=== PATIENT | male | born 1955 | race African-American/Black ===

== ENCOUNTER 2018-01-19 14:11 | Inpatient (IN) | payer OTHER ==
[~2018-01-19] VITALS: Ht 200.7 cm; Wt 72.3 kg
[2018-01-19] MEDS ORDERED: AMLO5TAB2 PO (14:49)
[2018-01-19] MEDS ORDERED: FERR325T28 PO (14:49)
[2018-01-19] MEDS ORDERED: ASCO500T9 PO (14:49)
[2018-01-19] MEDS ORDERED: POLY17PO4 PO (14:49)
[2018-01-19] MEDS ORDERED: ATOR40TA PO (14:49)
[2018-01-19] MEDS ORDERED: WARF4TAB41 PO (14:49)
[2018-01-19] MEDS ORDERED: CAPT100T2 PO (14:49)
[2018-01-19] MEDS ORDERED: AMIK250V14 IV (14:49)
[2018-01-19] MEDS ORDERED: HYDR-4076 PO (14:49)
[2018-01-19] MEDS ORDERED: INSU100V7 SQ (14:49)
[2018-01-19] MEDS ORDERED: MULT-447 PO (14:49)
[2018-01-19] MEDS ORDERED: BLOO-668 IN (14:49)
[2018-01-19] MEDS ORDERED: HYDR-552 PO (14:49)
[2018-01-19] MEDS ORDERED: DOCU-141 PO (14:49)
[2018-01-19] MEDS ORDERED: INSU100V27 SQ (14:49)
[2018-01-19] MEDS ORDERED: LEVE250T2 PO (14:49)
[2018-01-19] MEDS ORDERED: CLON0.5T PO (14:49)
[2018-01-19] MEDS ORDERED: FURO-144 PO (14:49)
[2018-01-19] MEDS ORDERED: FAMO20TA8 PO (14:49)
[2018-01-19 15:29] LABS: BASOPHILS % (AUTO) 0.4 % (0.0-2.0); HEMATOCRIT 28 % (39-51); HEMOGLOBIN 8.6 g/dL (13.5-17.5); LYMPHOCYTES # (AUTO) 0.8 /CMM (0.8-4.8); LYMPHOCYTES % (AUTO) 15.6 % (20.0-44.0); MEAN CORPUSCULAR HEMOGLOBIN 23 PG (26.0-33.0); MEAN CORPUSCULAR HGB CONC 31 g/dl (31.0-36.0); MEAN CORPUSCULAR VOLUME 72 fL (80-96); MONOCYTES # (AUTO) 0.4 /CMM (0.1-1.30); MONOCYTES % (AUTO) 7.2 % (2.0-12.0); NEUTROPHILS # (AUTO) 3.7 /CMM (1.8-8.9); NEUTROPHILS % (AUTO) 75.8 % (43.0-81.0); PLATELET COUNT (AUTO) 569 /CMM (150-450); RDW COEFFICIENT OF VARIATION 18.9 (11.5-15.0); RED BLOOD CELL COUNT(AUTO) 3.83 MIL/uL (4.5-6.0); WHITE BLOOD COUNT (AUTO) 4.9 K/uL (4.3-11.0)
[2018-01-19 15:34] LABS: INR 1.62 (0.85-1.15)
[2018-01-19 15:37] LABS: ALBUMIN 2.1 g/dL (3.4-5.0); BILIRUBIN,DIRECT 0.1 mg/dL (0.0-0.2); BILIRUBIN,TOTAL 0.2 mg/dL (0.2-1.0); CALCIUM, SERUM 8.9 mg/dL (8.5-10.1); CREATININE 0.7 mg/dL (0.6-1.3); TOTAL PROTEIN, SERUM 6.8 g/dL (6.4-8.2)
[2018-01-19 15:54] LABS: POTASSIUM 2.7 mmol/L (3.5-5.1)
[2018-01-19] MEDS ORDERED: CT SWABBABLE VALVE TRANS SET 1 EA INFUS.SET MC ONE (16:11)
[2018-01-19] MEDS ORDERED: IV NS 0.9% 250 ML IV ONE (16:11)
[2018-01-19] MEDS ORDERED: IOHEXOL-300 100 ML VIAL IV ONE (16:11)
[2018-01-19] MEDS ORDERED: POTASSIUM CL. PREMIX PERIPHER. 50 ML IV ONE (16:13)
[2018-01-19] MEDS ORDERED: Magnesium 1GM/D5W 100ML PREMIX 100 ML IV ONE ×2 (16:20→16:21)
[2018-01-19] MEDS ORDERED: POTASSIUM CL. PREMIX PERIPHER. 50 ML ONE (16:20)
[2018-01-19] MEDS ORDERED: Magnesium 1GM/D5W 100ML PREMIX PIGGYBACK IV ONE (16:30)
--- NOTE | 2018-01-19 17:55 | NUR ---
pt assigned tele 327
[2018-01-19] MEDS ORDERED: VANCOMYCIN 1 GM in IV D5W 250 ML IV ONE (18:30)
[2018-01-19] MEDS ORDERED: Z GUARD REMEDY 2 OZ OINT TP PRN (18:30)
[2018-01-19] MEDS ORDERED: HYDROCODONE/APAP 5/325MG 1 EACH TABLET PO PRN ×2 (18:30)
[2018-01-19] MEDS ORDERED: MAGNESIUM HYDROXIDE 30 ML UDC PO PRN (18:30)
[2018-01-19] MEDS ORDERED: ACETAMINOPHEN 325 MG TABLET PO PRN (18:30)
[2018-01-19] MEDS ORDERED: MAG HYDROX/AL HYDROX/SIMETH 30 ML UDC PO PRN (18:30)
[2018-01-19] MEDS ORDERED: ONDANSETRON HCL/PF 4 MG/2 ML VIAL IVP PRN (18:30)
[2018-01-19] MEDS ORDERED: VANCOMYCIN 1 GM VIAL ONE (18:56)
[2018-01-19] MEDS ORDERED: ENOXAPARIN SODIUM 40 MG/0.4 ML DISP.SYRIN SQ SCH ×2 (19:00→21:00)
[2018-01-19] MEDS: IV NS 0.9% 1,000 ML IV PRN (20:00)
[2018-01-19] MEDS ORDERED: DEXTROSE 50%-WATER 50 ML DISP.SYRIN IV PRN (20:00)
--- NOTE | 2018-01-19 20:00 | NUR ---
RN OPENING NOTES PT ARRIVED ON TO THE UNIT VIA GURNEY 1900. STAFF AT PATIENT'S SNF STATED THAT THERE IS EXCESSIVE DRAINAGE FROM HIS SACRAL WOUND. PT HAS A SIGNIFICANT LEFT SIDED WEAKNESS. PT IS TELE MONITORED AT SINUS RHYTHM RATE 75. PT HAS A RIGHT FOREARM IV #20 INTACT AND PATENT. NO APPARENT S/S OF PAIN DISTRESS OR SOB AT THIS TIME. PT HAS A PARTIAL LEFT FOOT AMPUTATION AND SACRAL WOUND BOTH DOCUMENTED, PICTURES TAKEN, AND ADDED TO CHART. ALL PATIENT BELONGINGS ACCOUNTED FOR AND DOCUMENTED. PATIENT EDUCATED ON THE USE OF THE CALL LIGHT. SAFETY PRECAUTIONS IN PLACE. BED IN LOWEST LOCKED POSITION, X2 SIDE RAILS UP, AND CALL LIGHT WITHIN REACH. WILL CONTINUE TO MONITOR.
[2018-01-19 20:03] LABS: IRON, SERUM 25 ug/dl (50-175); TOTAL IRON BINDING CAPACITY 216 ug/dl (250-450)
[2018-01-19] MEDS ORDERED: FEE PK DOSING 1 MIN EA MC ONE (20:05)
[2018-01-19 21:17] VITALS: BP 172/76
--- NOTE | 2018-01-19 21:21 | NUR ---
INITIAL ECHO SHOWED MODERATE PERICARDIAL EFFUSION WITH EF~ 60%. INFORMED ATTENDING NURSE OF PRELIMINARY RESULTS.
[2018-01-19] MEDS: PIPERACILLIN /TAZOBACTAM 4.5 G in IV D5W 50 ML IV SCH (21:30)
[2018-01-19] MEDS: ATORVASTATIN 40 MG TABLET PO SCH (21:30)
[2018-01-19] MEDS: hydrALAZINE HCL 25 MG TABLET PO SCH (21:32)
[2018-01-19] MEDS: LEVETIRACETAM (250 MG) 250 MG TABLET PO SCH (21:33)
[2018-01-19] MEDS: WARFARIN SODIUM 2 MG TABLET PO SCH (21:36)
[2018-01-19] MEDS: BLOOD SUGAR DIAGNOSTIC 1 EACH STRIP IN SCH (21:40)
[2018-01-19] MEDS: INSULIN REGULAR, HUMAN 100 UNIT/ML 3 ML VIAL SQ PRN (21:45)
[2018-01-19] MEDS: INSULIN GLARGINE, 100 UNIT/ML CARTRIDGE SQ SCH (22:00)
[2018-01-20] VITALS (8 sets, daily range): BP systolic 132–164; BP diastolic 55–83
[2018-01-20 02:12] LABS: OCCULT BLOOD STOOL NEGATIVE (NEGATIVE)
[2018-01-20] MEDS: VANCOMYCIN 1 GM in IV NS 0.9% 250 ML IV SCH ×3 (03:04→20:13)
[2018-01-20] MEDS: PIPERACILLIN /TAZOBACTAM 4.5 G in IV D5W 50 ML IV SCH ×3 (05:27→18:03)
[2018-01-20] MEDS: INSULIN REGULAR, HUMAN 100 UNIT/ML 3 ML VIAL SQ PRN ×4 (06:32→21:20)
[2018-01-20] MEDS: BLOOD SUGAR DIAGNOSTIC 1 EACH STRIP IN SCH ×4 (06:37→21:14)
--- NOTE | 2018-01-20 06:39 | NUR ---
rn notes pt refused lab draw. he stated that he would allow them to come after breakfast.
--- NOTE | 2018-01-20 06:45 | NUR ---
RN CLOSING NOTES PT AWAKE AND RESTING IN BED. NO COMPLAINTS OF PAIN, SOB OR DISTRESS OVERNIGHT. PT IS TELE MONITORED AT SINUS RHYTHM RATE 65. PT HAS A RIGHT FOREARM IV #20 INTACT RUNNING NS @75ML/HR, PT TOLERATING WELL. SAFETY PRECAUTIONS IN PLACE. BED IN LOWEST LOCKED POSITION, X2 SIDE RAILS UP, AND CALL LIGHT WITHIN REACH. WILL ENDORSE TO DAY SHIFT NURSE FOR CONTINUITY OF CARE.
--- NOTE | 2018-01-20 07:20 | NUR ---
PARKING LOT CHAUFFEUR OPENING NOTE RECEIVED PATIENT IN BED, ALERT ORIENTED X3, ON ROOM AIR TOLERATING WELL, IN NO APPARENT DISTRESS OR DISCOMFORT AT THIS TIME, RESPIRATIONS EVEN AND UNLABORED. DENIES PAIN AND SOB. PATIENT ON TELE MONITORING WITH SINUS RHYTHM AND HR OF 75. INCONTINENT WITH DIAPER. WITH SACRAL ULCER, DRESSING CLEAN AND INTACT, RIGHT FOREARM 20G IV ACCESS WITH FLUIDS RUNNING AT 75ML/HR. ABLE TO COMMUNICATE NEEDS. PATIENT KEPT CLEAN AND COMFORTABLE. SAFETY MEASURES IN PLACE, BED IN LOW LOCKED POSITION, SIDE RAILS UP X2, CALL LIGHT WITHIN EASY REACH WILL CONTINUE TO MONITOR.
--- NOTE | 2018-01-20 09:00 | NUR ---
WOUND CARE CONSULT PATIENT SEEN AND SKIN INTEGRITY ASSESSMENT DONE. PLEASE SEE BOBBIN TRUCKER ASSESSMENT PCS. PATIENT WITH TEA OF 14. SURGICAL CONSULT RECOMMENDED. DISCUSSED WITH MD WOUND CARE AND SKIN PROTECTION AND IN AGREEMENT. ALL PRESSURE ULCER PREVENTION MEASURES NOTED TO BE IN PLACE PER PLAN OF CARE. WILL SEE PATIENT PRN. ALL DISCUSSED WITH RN AT BEDSIDE. Addendum: 01/20/18 at 0923 by STAR ESPARZA RN Amended: Links added.
[2018-01-20] MEDS: DOCUSATE SODIUM 100 MG CAPSULE PO SCH ×2 (09:27→17:54)
[2018-01-20] MEDS: AMLODIPINE BESYLATE 5 MG TABLET PO SCH ×2 (09:28→18:03)
[2018-01-20] MEDS: clonazePAM 0.5 MG TABLET PO SCH ×2 (09:28→17:54)
[2018-01-20] MEDS: hydrALAZINE HCL 25 MG TABLET PO SCH ×3 (09:28→18:03)
[2018-01-20] MEDS: FERROUS SULFATE (325 MG) 325 MG/TAB TABLET PO SCH ×3 (09:29→17:54)
[2018-01-20] MEDS: ASCORBIC ACID 500 MG TABLET PO SCH (09:29)
[2018-01-20] MEDS: LEVETIRACETAM (250 MG) 250 MG TABLET PO SCH ×2 (09:29→20:02)
[2018-01-20 11:23] LABS: CALCIUM, SERUM 8.2 mg/dL (8.5-10.1); CREATININE 0.9 mg/dL (0.6-1.3); MAGNESIUM 2.2 mg/dL (1.8-2.4); PHOSPHORUS 3.8 mg/dL (2.5-4.9); POTASSIUM 3.1 mmol/L (3.5-5.1)
[2018-01-20 11:56] LABS: THYROID STIMULATING HORMONE 5.772 uIU/mL (0.358-3.74)
[2018-01-20 13:38] LABS: BASOPHILS % (AUTO) 0.4 % (0.0-2.0); EOSINOPHILS % (AUTO) 1.7 % (0.0-6.0); HEMATOCRIT 26 % (39-51); HEMOGLOBIN 8.2 g/dL (13.5-17.5); LYMPHOCYTES # (AUTO) 0.8 /CMM (0.8-4.8); LYMPHOCYTES % (AUTO) 19.5 % (20.0-44.0); MEAN CORPUSCULAR HEMOGLOBIN 22 PG (26.0-33.0); MEAN CORPUSCULAR HGB CONC 31 g/dl (31.0-36.0); MEAN CORPUSCULAR VOLUME 71 fL (80-96); MONOCYTES # (AUTO) 0.3 /CMM (0.1-1.30); NEUTROPHILS # (AUTO) 2.9 /CMM (1.8-8.9); NEUTROPHILS % (AUTO) 70.4 % (43.0-81.0); PLATELET COUNT (AUTO) 497 /CMM (150-450); RDW COEFFICIENT OF VARIATION 19.4 (11.5-15.0); RED BLOOD CELL COUNT(AUTO) 3.69 MIL/uL (4.5-6.0); WHITE BLOOD COUNT (AUTO) 4.1 K/uL (4.3-11.0)
--- NOTE | 2018-01-20 14:30 | NUR ---
PATIENT REMOVED IV ACCESS, TIP INTACT. NEW IV PLACED ON RIGHT FOREARM 22G. PATENT AND INTACT.
--- NOTE | 2018-01-20 15:10 | NUR ---
PATIENT IS NON-COMPLIANT WITH PRESCRIBED DIET. KEEPS SHOUTING FOR FOOD, GEOFF CRACKERS AND PUDDINGS. EDUCATION PROVIDED REGARDING RISKS AND BENEFITS. VERBALIZED UNDERSTANDING BUT DOES NOT WANT TO FOLLOW THE DIET. MD NOTIFIED.
--- NOTE | 2018-01-20 16:56 | NUR ---
PATIENT WAS EVALUATED BY DIETITIAN. RECOMMENDED STANDARD [facility] 60G DIET, GLUCERNA SHAKE TID, AND MULTIVITAMINS. COMMUNICATED WITH DR. BYERS, RECEIVED VERBAL ORDER TO CARRY OUT MENTIONED RECOMMENDATIONS. ORDER READ BACK AND VERIFIED.
[2018-01-20] MEDS: WARFARIN SODIUM 2 MG TABLET PO SCH (17:00)
--- NOTE | 2018-01-20 17:50 | NUR ---
PATIENT WAS SEEN BY SURGICAL CONSULT, DAVE MAURICE, POSSIBLE DEBRIDEMENT, PER MD HOLDING COUMADIN UNTIL DECIDED ON FURTHER ACTION REGARDING PATIENT'S ULCER. WILL CONTINUE TO MONITOR.
[2018-01-20] MEDS: GLUCERNA SHAKE 237 ML CAN PO SCH (18:04)
--- NOTE | 2018-01-20 19:00 | NUR ---
CORPORATE SECURITY MANAGER OPENING NOTE RECEIVE PATIENT AWAKE IN BED, A/O X2-3, FORGETFUL, NO SOB OR DISTRESS NOTED, CALL LIGHT WITHIN REACH. SAFETY MEASURES IMPLEMENTED. WILL CONTINUE TO MONITOR THROUGHOUT SHIFT.
--- NOTE | 2018-01-20 19:45 | NUR ---
TOP CLOSER CLOSING NOTE PATIENT IN BED, ALERT ORIENTED X3, FORGETFUL AND CONFUSED AT TIMES. ON ROOM AIR TOLERATING WELL, IN NO APPARENT DISTRESS OR DISCOMFORT AT THIS TIME, RESPIRATIONS EVEN AND UNLABORED. DENIES PAIN AND SOB. PATIENT ON TELE MONITORING WITH SINUS RHYTHM AND HR OF 75. INCONTINENT WITH DIAPER. WITH SACRAL ULCER, DRESSING CHANGED, CLEAN AND INTACT, RIGHT FOREARM 22G IV ACCESS WITH FLUIDS RUNNING AT 75ML/HR. ABLE TO COMMUNICATE NEEDS. PATIENT KEPT CLEAN AND COMFORTABLE. ALL NEEDS ATTENDED. SAFETY MEASURES IN PLACE, BED IN LOW LOCKED POSITION, SIDE RAILS UP X3, CALL LIGHT WITHIN EASY REACH, WILL ENDORSE TO PM NURSE FOR HARSHAD.
[2018-01-20] MEDS: HYDROCODONE/APAP 10/325MG 1 EA TABLET PO PRN (20:02)
[2018-01-20] MEDS: IV NS 0.9% 1,000 ML IV PRN (20:10)
--- NOTE | 2018-01-20 20:38 | NUR ---
CABLE SYSTEMS INSTALLER NOTES CALLED [facility] OK TO GIVE VANCO 1G INFUSING WILL DRAW VANCO TROUGH AGAIN AT 4AM
[2018-01-20] MEDS: ZOLPIDEM TARTRATE 5 MG TABLET PO PRN (21:08)
[2018-01-20] MEDS: ATORVASTATIN 40 MG TABLET PO SCH (21:08)
[2018-01-20] MEDS ORDERED: INSULIN GLARGINE, 100 UNIT/ML CARTRIDGE SQ ONE (21:38)
[2018-01-20] MEDS: INSULIN GLARGINE, 100 UNIT/ML CARTRIDGE SQ SCH (21:44)
[2018-01-21] VITALS: BP 137/71
[2018-01-21] MEDS: PIPERACILLIN /TAZOBACTAM 4.5 G in IV D5W 50 ML IV SCH ×4 (00:31→17:32)
[2018-01-21 04:00] VITALS: BP 150/73
[2018-01-21] MEDS: VANCOMYCIN 0.75 GM in IV NS 0.9% 250 ML IV SCH ×3 (04:09→20:34)
[2018-01-21] MEDS: BLOOD SUGAR DIAGNOSTIC 1 EACH STRIP IN SCH ×4 (05:40→22:11)
[2018-01-21] MEDS: INSULIN REGULAR, HUMAN 100 UNIT/ML 3 ML VIAL SQ PRN ×3 (05:40→22:28)
--- NOTE | 2018-01-21 06:08 | NUR ---
INSURANCE EXAMINER CLOSING NOTES PT COMFORTABLY ASLEEP AND EASILY AWAKEN, STABLE, TOLERATING ROOM AIR 99% NOT IN DISTRESS. RESPIRATION EVEN AND UNLABORED. KEPT CLEAN AND DRY AND COMFORTABLE, ALL NURSING CARE RENDERED. NEEDS ATTENDED AND ANTICIPATED, NO FACIAL GRIMACING NOTED. TREATMENT ORDERED, GOOD SKIN CARE PROVIDED. ASSISTED REPOSITION EVERY 2 HOURS. ON LOW BED AT ALL TIMES TO ENSURE SAFETY. SAFE HAZARD FREE ENVIRONMENT PROVIDED. CALL LIGHT WITHIN EASY TO REACH. WILL ENDORSE NEXT SHIFT CONTINUITY OF CARE. SR 75'S.
--- NOTE | 2018-01-21 07:21 | NUR ---
ELECTRICIAN CHIEF OPENING NOTES RECEIVED PT AWAKE IN BED IN NO ACUTE SIGNS OF DISTRESS. HOB ELEVATED. A/O X2. ABLE TO VERBALIZED NEEDS, DENIES ANY PAIN OR DISCOMFORTS AT THIS TIME. ON ROOM AIR, RESPIRATION EVEN AND UNLABORED. ON TELE-MONITORING WITH CURRENT READING OF SR AND HR OF 65, NO CARDIAC DISTRESS NOTED. IV ACCESS ON RFA G#22 INTACT AND PATENT, IVF OF NS @ 75ML/HR INFUSING WELL, NO S/S OF INFILTRATION NOTED. BED IN LOW/LOCKED POSITION WITH SR UP APPROPRIATE. CALL LIGHT WITHIN EASY TO REACH. WILL CONTINUE TO MONITOR .
[2018-01-21 08:00] VITALS: BP 145/75
[2018-01-21] MEDS: FERROUS SULFATE (325 MG) 325 MG/TAB TABLET PO SCH ×3 (08:23→16:26)
[2018-01-21] MEDS: clonazePAM 0.5 MG TABLET PO SCH ×2 (08:23→16:26)
[2018-01-21] MEDS: LEVETIRACETAM (250 MG) 250 MG TABLET PO SCH ×2 (08:23→21:41)
[2018-01-21] MEDS: ASCORBIC ACID 500 MG TABLET PO SCH (08:23)
[2018-01-21] MEDS: DOCUSATE SODIUM 100 MG CAPSULE PO SCH ×2 (08:23→16:25)
[2018-01-21] MEDS: MULTIVITAMINS,THERAGRAN 1 UDTAB TABLET PO SCH (08:24)
[2018-01-21] MEDS: hydrALAZINE HCL 25 MG TABLET PO SCH ×3 (08:24→16:27)
[2018-01-21] MEDS: AMLODIPINE BESYLATE 5 MG TABLET PO SCH ×2 (08:24→16:26)
[2018-01-21] MEDS: GLUCERNA SHAKE 237 ML CAN PO SCH ×3 (08:40→16:34)
[2018-01-21 10:32] LABS: HEMATOCRIT 27 % (39-51); HEMOGLOBIN 8.5 g/dL (13.5-17.5); LYMPHOCYTES # (AUTO) 0.9 /CMM (0.8-4.8); LYMPHOCYTES % (AUTO) 18.2 % (20.0-44.0); MEAN CORPUSCULAR HEMOGLOBIN 23 PG (26.0-33.0); MEAN CORPUSCULAR HGB CONC 31 g/dl (31.0-36.0); MEAN CORPUSCULAR VOLUME 73 fL (80-96); MONOCYTES # (AUTO) 0.4 /CMM (0.1-1.30); NEUTROPHILS # (AUTO) 3.4 /CMM (1.8-8.9); NEUTROPHILS % (AUTO) 70.8 % (43.0-81.0); PLATELET COUNT (AUTO) 534 /CMM (150-450); RDW COEFFICIENT OF VARIATION 21.1 (11.5-15.0); RED BLOOD CELL COUNT(AUTO) 3.71 MIL/uL (4.5-6.0); WHITE BLOOD COUNT (AUTO) 4.8 K/uL (4.3-11.0)
[2018-01-21 10:48] LABS: CALCIUM, SERUM 8.3 mg/dL (8.5-10.1); CREATININE 0.8 mg/dL (0.6-1.3); PHOSPHORUS 3.7 mg/dL (2.5-4.9)
[2018-01-21 10:51] LABS: POTASSIUM 2.6 mmol/L (3.5-5.1)
[2018-01-21] MEDS: IV NS 0.9% 1,000 ML IV PRN (11:54)
--- NOTE | 2018-01-21 12:59 | NUR ---
RN NOTES PATIENT WITH NOTED LOW LEVEL POTASSIUM 2.6. DR ALBRECHT MADE AWARE WITH ORDER TO GIVE KDUR 40MEQ PO X1 AND 10MEQ/50ML IV X 4BAGS. WILL CONTINUE TO MONITOR.
[2018-01-21] MEDS ORDERED: POTASSIUM CHLORIDE 20 MEQ TAB.PRT.SR PO ONE (13:00)
[2018-01-21] MEDS: POTASSIUM CL. PREMIX PERIPHER. 50 ML IV SCH ×4 (13:20→16:27)
[2018-01-21 13:30] LABS: INR 1.49 (0.87-1.13)
--- NOTE | 2018-01-21 14:27 | NUR ---
RN NOTES PT'S SACRAL WOUND SEEN AND EVALUATED BY CREDIT CARD SPECIALIST DAVE SADNHU. SACRAL WOUND WITH SMALL OPENING AND PURULENT DRAINAGE. WOUND TX DONE AND CREDIT CARD SPECIALIST ORDER TO APPLY KPAD TO SACRAL AREA 4X A DAY 20MINUTES EAC TIME. WILL CONTINUE TO MONITOR
[2018-01-21] MEDS: HYDROCODONE/APAP 10/325MG 1 EA TABLET PO PRN ×2 (14:36→20:00)
--- NOTE | 2018-01-21 14:38 | NUR ---
RN NOTES/PAIN MANAGEMENT PT C/O PAIN ON HIS SACRAL WOUND WITH SCALE OF 8/10, PRN NORCO 10/325 TAB GIVEN. WILL CONTINUE TO MONITOR
[2018-01-21 16:00] VITALS: BP_SYST 145; BP_SYST 172; BP_DIAS 75; BP_DIAS 81
--- NOTE | 2018-01-21 16:03 | NUR ---
RN NOTES CENTRAL SUPPLY UN-ABLE TO SUPPLY KPAD FOR PATIENT, CHARGE NURSE YUKI MADE AWARE. WARM BLANKET APPLIED TEMPORARY ALTERNATIVE APPLIED TO SACRAL AREA. WILL CONTINUE TO MONITOR.
[2018-01-21] MEDS: LACTOBACILLUS RHAMNOSUS GG 1 EACH CAP.SPRINK PO SCH (16:26)
[2018-01-21] MEDS: WARFARIN SODIUM 2 MG TABLET PO SCH (16:32)
--- NOTE | 2018-01-21 17:35 | NUR ---
RN NOTES PATIENT RESTLESS AND REFUSED BLOOD SUGAR CHECK AT 1730 DESPITE EXPLAINING THE RISKS. WILL CONTINUE TO MONITOR
--- NOTE | 2018-01-21 18:35 | NUR ---
MS RN CLOSING NOTES PATIENT IN BED AWAKE AND LYING @ MODERATE HIGH BACKREST POSITION. A/O X2. ABLE TO MAKE NEEDS KNOWN. PT CONFUSED, SCREAMING HE WANTS TO GO HOME AND SHOUTING FOR HIS MOTHER, NEEDS ATTENDED WELL PROMPTLY AND MORAL SUPPORT GIVEN. ON ROOM AIR, RESPIRATION EVEN WITH NO SOB NOTED. IV ACCESS ON RFA G#22 INTACT AND PATENT, IVF OF NS @ 75ML/HR INFUSING WELL, NO S/S OF INFILTRATION NOTED. TURNED AND REPOSITIONED Q 2HRS AND PRN. ALL SAFETY MEASURES KEPT IN PLACE. HOB ELEVATED. BED IN LOW/LOCKED POSITION WITH SIDE-RAILS UP X3. CALL LIGHT WITHIN EASY TO REACH. ALL DUE NURSING CARE RENDERED AND MAINTAINED. WILL ENDORSE TO DIRECTOR OF COMMUNITY EDUCATION NURSE FOR HARSHAD.
--- NOTE | 2018-01-21 19:30 | NUR ---
MS RN NOTES RECEIVED ON BED A/O X2-3,SCREAMING ASKING FOR SANDWICH AND HE'S ON PUREED DIET.WITH HX OF RIGHT FOOT PARTIAL AMPUTATION.SACRAL WOUND DRESSING INTACT AND DRY.SALINE LOCK RFA INTACT AND PATENT,NS AT 75ML/HR RATE IN PROGRESS.ON SPECIALTY MATTRESS FOR SKIN MANAGEMENT.REPOSITION PER PROTOCOL.CALL LIGHT IN REACH,NEEDS ANTICIPATED.
[2018-01-21 20:00] VITALS: BP_SYST 151; BP_SYST 157; BP_DIAS 85
--- NOTE | 2018-01-21 20:00 | NUR ---
MS RN NOTES PAIN MANAGEMENT C/O PAIN ON SACRAL AREA 8/10 ON PAIN SCALE,NORCO 10/325MG,1TAB PO GIVEN ORDERED FOR SEVERE PAIN.
[2018-01-21] MEDS: ATORVASTATIN 40 MG TABLET PO SCH (21:41)
[2018-01-21] MEDS: INSULIN GLARGINE, 100 UNIT/ML CARTRIDGE SQ SCH (22:27)
--- NOTE | 2018-01-21 22:27 | NUR ---
MS RN NOTES LANTUS 16 UNITS ADMINISTERED SCHEDULED,GIVE SQ ON RIGHT DELTOID,ALONG WITH HUMULIN R 10 UNITS PER SLIDING SCALE FOR BLOOD SUGAR GREATER THAN 400.WILL CONTINUE TO MONITOR STATUS.
--- NOTE | 2018-01-21 22:30 | NUR ---
MS RN NOTES ACCU-CHECK BLOOD SUGAR CHECK 571, RECHECK WAS 569,PATIENT HAD PUDDING AND APPLE SAUCE WITH MEDS EARLIER.PROTOCOL INITIATED,LAB NOTIFIED FOR RANDOM BLOOD SUGAR.
--- NOTE | 2018-01-21 23:00 | NUR ---
MS RN NOTES DR BRICE WAS PAGE AWAITING TO CALL BACK
--- NOTE | 2018-01-21 23:30 | NUR ---
MS RN NOTES DR BRICE CAME,MADE AWARE OF PATIENT BLOOD SUGAR AND INSULIN THAT WAS GIVEN,WITH ORDER TO CHECK BLOOD SUGAR IN TWO HOURS.
[2018-01-22] MEDS: PIPERACILLIN /TAZOBACTAM 4.5 G in IV D5W 50 ML IV SCH ×3 (00:02→11:02)
--- NOTE | 2018-01-22 00:30 | NUR ---
MS RN NOTES BLOOD RE CHECK WAS 445,ASYMPTOMATIC
--- NOTE | 2018-01-22 00:50 | NUR ---
MS RN NOTES DR BRICE MADE AWARE OF LATEST BLOOD SUGAR,WITH ORDER TO GIVE 15 UNITS OF HUMULIN R,THE RE CHECK AFTER TWO HOURS AND COVER WITH SLIDING SCALE.
[2018-01-22] MEDS: ZOLPIDEM TARTRATE 5 MG TABLET PO PRN (01:05)
--- NOTE | 2018-01-22 01:05 | NUR ---
MS RN NOTES C/O INSOMNIA,AMBIEN 5MG PO GIVEN ORDERED.
--- NOTE | 2018-01-22 01:23 | NUR ---
MS RN NOTES HUMULIN R 15 UNITS ADMINISTERED VIA RIGHT DELTOID ORDERED.
[2018-01-22] MEDS ORDERED: *INSULIN REGULAR(HUMULIN R)HUM 100 UNIT/ML VIAL SQ ONE (01:30)
[2018-01-22] MEDS ORDERED: MISCELLANEOUS MED 1 EA EA XX ONE (01:30)
--- NOTE | 2018-01-22 02:45 | NUR ---
MS RN NOTES ACCU CHECK BLOOD SUGAR RE-CHECK 321,COVERED WITH HUMULIN 8 UNITS PER SLIDING SCALE ORDERED.WILL CONTINUE TO MONITOR.
[2018-01-22] MEDS: INSULIN REGULAR, HUMAN 100 UNIT/ML 3 ML VIAL SQ PRN ×3 (02:54→21:19)
[2018-01-22 03:33] LABS: BASOPHILS % (AUTO) 0.4 % (0.0-2.0); EOSINOPHILS % (AUTO) 1.1 % (0.0-6.0); HEMATOCRIT 26 % (39-51); LYMPHOCYTES # (AUTO) 0.9 /CMM (0.8-4.8); LYMPHOCYTES % (AUTO) 19.4 % (20.0-44.0); MEAN CORPUSCULAR HEMOGLOBIN 22 PG (26.0-33.0); MEAN CORPUSCULAR HGB CONC 31 g/dl (31.0-36.0); MEAN CORPUSCULAR VOLUME 73 fL (80-96); MONOCYTES # (AUTO) 0.4 /CMM (0.1-1.30); MONOCYTES % (AUTO) 7.6 % (2.0-12.0); NEUTROPHILS # (AUTO) 3.4 /CMM (1.8-8.9); NEUTROPHILS % (AUTO) 71.5 % (43.0-81.0); PLATELET COUNT (AUTO) 498 /CMM (150-450); RDW COEFFICIENT OF VARIATION 20.5 (11.5-15.0); RED BLOOD CELL COUNT(AUTO) 3.61 MIL/uL (4.5-6.0); WHITE BLOOD COUNT (AUTO) 4.7 K/uL (4.3-11.0)
[2018-01-22 03:39] LABS: CALCIUM, SERUM 8.3 mg/dL (8.5-10.1)
[2018-01-22 03:41] LABS: INR 1.4 (0.87-1.13)
[2018-01-22 03:47] LABS: POTASSIUM 2.8 mmol/L (3.5-5.1)
--- NOTE | 2018-01-22 03:50 | NUR ---
MS RN NOTES REPORTED BY HORSE RIDER,POTASSIUM LEVEL THIS TIME IS 2.4,CHARGE NURSE AWARE.WILL CALL MD RN PAIN MANAGEMENT.
[2018-01-22] MEDS: VANCOMYCIN 0.75 GM in IV NS 0.9% 250 ML IV SCH ×2 (04:13→11:44)
--- NOTE | 2018-01-22 05:10 | NUR ---
MS RN NOTES MD CORPORATE PLANNING MANAGER WAS PAGE AWAITING TO CALL BACK.
--- NOTE | 2018-01-22 06:00 | NUR ---
MS RN NOTES DR BRICE CALLED BACK,NURSE FELICE WAS TALKING TO HIM,BUT AFTER THE LINE WAS CUT OFF.
[2018-01-22] MEDS: BLOOD SUGAR DIAGNOSTIC 1 EACH STRIP IN SCH ×4 (06:12→21:01)
[2018-01-22] MEDS: IV NS 0.9% 1,000 ML IV PRN ×2 (06:30→23:32)
--- NOTE | 2018-01-22 06:43 | NUR ---
MS RN NOTES ON BED REMAINS ALERT,WITH PERIODS OF CONFUSION,SCREAMS AT TIMES.IV ABX TOLERATED WELL.DRESSING CHANGE TO SACRAL AREA DONE,STILL DRAINING PUS.BLOOD SUGAR MANAGE SAFELY;LATEST BLOOD SUGAR WAS 96.LATEST POTASSIUM LEVEL 2.8.WILL FOLLOW UP WITH MD THIS MORNING.REPOSITION PER PROTOCOL.CALL LIGHT IN REACH,NEEDS ATTENDED.WILL ENDORSE TO PARESH ADDISON FOR HARSHAD.
--- NOTE | 2018-01-22 07:35 | NUR ---
MS RN OPENING NOTES RECEIVED PT LAYING IN BED WITH HOB SLIGHTLY ELEVATED. PT IS A/O X2-3, AFEBRILE. RESPIRATIONS ARE EVEN AND UNLABORED, NOT IN ANY ACUTE DISTRESS NOTED. BILATERAL HAND ELECTRONIC TEST TECHNICIAN ARE UNEQUAL W/ LEFT SIDED WEAKNESS. PT DENIES ANY PAIN AT THIS TIME, NO C/O SOB, N/V. IV SITE INTACT, NO INFILTRATION NOTED. DRESSING KEPT CLEAN AND DRY. WILL REPOSITION PER PROTOCOL D/T TO SACRAL ABSCESS AND FOR COMFORT. SAFETY MEASURES ARE IN PLACE. CALL LIGHT IS LEFT WITHIN REACH. WILL CONTINUE TO MONITOR THROUGHOUT SHIFT FOR CONTINUITY OF CARE.
[2018-01-22 08:00] VITALS: BP 149/73
[2018-01-22] MEDS: GLUCERNA SHAKE 237 ML CAN PO SCH ×3 (08:57→17:38)
[2018-01-22] MEDS: AMLODIPINE BESYLATE 5 MG TABLET PO SCH ×2 (08:58→17:35)
[2018-01-22] MEDS: LACTOBACILLUS RHAMNOSUS GG 1 EACH CAP.SPRINK PO SCH ×2 (08:58→17:35)
[2018-01-22] MEDS: FERROUS SULFATE (325 MG) 325 MG/TAB TABLET PO SCH ×3 (08:58→17:35)
[2018-01-22] MEDS: DOCUSATE SODIUM 100 MG CAPSULE PO SCH ×2 (08:58→17:35)
[2018-01-22] MEDS: LEVETIRACETAM (250 MG) 250 MG TABLET PO SCH ×2 (08:58→20:54)
[2018-01-22] MEDS: clonazePAM 0.5 MG TABLET PO SCH ×2 (08:58→17:35)
[2018-01-22] MEDS: ASCORBIC ACID 500 MG TABLET PO SCH (08:58)
[2018-01-22] MEDS: MULTIVITAMINS,THERAGRAN 1 UDTAB TABLET PO SCH (08:58)
[2018-01-22] MEDS: hydrALAZINE HCL 25 MG TABLET PO SCH ×3 (08:59→17:36)
[2018-01-22] MEDS: POTASSIUM CHLORIDE 20 MEQ TAB.PRT.SR PO SCH ×3 (11:02→11:55)
--- NOTE | 2018-01-22 11:18 | NUR ---
MS RN NOTES BLOOD SUGAR 97, NO COVERAGE. NO S/SX OF HYPOGLYCEMIA. WILL CONTINUE TO MONITOR.
[2018-01-22] MEDS ORDERED: LIDOCAINE 2%-EPI 1:100,000 30 ML VIAL TP STA (15:25)
[2018-01-22] MEDS ORDERED: SILVER NITRATE APPLICATOR 1 EA BOX TP STA (15:25)
[2018-01-22 16:00] VITALS: BP 158/86
[2018-01-22] MEDS: WARFARIN SODIUM 2 MG TABLET PO SCH (17:36)
--- NOTE | 2018-01-22 18:30 | NUR ---
MS RN NOTES I&D WOUND DEBRIDEMENT TO SACRAL DONE BY MARIA ANTONIA POWER PLANT ENGINEER W/ LIDOCAINE. PER MARIA ANTONIA, NO NITRATE NEEDED AT THIS TIME. PT TOLERATED PROCEDURE WELL AT BEDSIDE.
--- NOTE | 2018-01-22 19:15 | NUR ---
MS RN OPENING NOTES: RECEIVED PT ON ROOM AIR AND TOLERATING WELL. PT IS A/OX2-3. PT IS I & D WOUND DEBRIDEMENT SACRAL AREA. PT HAS IV AND IS BEING INFUSED WITH IV NS AT 75ML/HR. CALL LIGHT WIHTIN PT'S REACH. BED KEPT IN LOW, LOCKED POSITION, AND SIDE RAILS X 3 UP. WILL CONTINUE TO MONITOR PT.
--- NOTE | 2018-01-22 19:17 | NUR ---
MS RN CLOSING NOTES ALL DUE MEDS GIVEN, NEEDS MET AND ANTICIPATED. PT IS A/O X2-3, AFEBRILE. RESPIRATIONS ARE EVEN AND UNLABORED, NOT IN ANY ACUTE DISTRESS NOTED. PT DENIES ANY PAIN, NO C/O SOB, N/V. IV SITE TO RFA INTACT, NO INFILTRATION NOTED. DRESSING KEPT CLEAN AND DRY. PT REPOSITIONED PER PROTOCOL. LEFT SIDED WEAKNESS NOTED AND HANDLED WITH CARE. EDUCATED PT ON FOODS IN HIGH IN CARBOHYDRATES D/T PT BEING DIABETIC AND PREVIOUS INCREASE IN BLOOD SUGAR. PT STATES HE UNDERSTANDS BUT NEEDS REEDUCATION. SAFETY MEASURES ARE IN PLACE. CALL LIGHT IS LEFT WITHIN REACH. ENDORSE TO NEXT SHIFT FOR CONTINUITY OF CARE.
[2018-01-22 20:00] VITALS: BP 147/75
[2018-01-22] MEDS: CEFAZOLIN 1 GM in IV D5W 50 ML IV SCH (20:04)
[2018-01-22] MEDS: HYDROCODONE/APAP 10/325MG 1 EA TABLET PO PRN (20:54)
[2018-01-22] MEDS: ATORVASTATIN 40 MG TABLET PO SCH (21:01)
[2018-01-22] MEDS: INSULIN GLARGINE, 100 UNIT/ML CARTRIDGE SQ SCH (21:20)
--- NOTE | 2018-01-22 21:25 | NUR ---
MS ADDISON NOTES: BLOOD SUGAR WAS 273. 6 UNITS OF REGULAR INSULIN WAS PROVIDED. 16 UNITS OF LANTUS PROVIDED WELL. SNACK PROVIDED. WILL CONTINUE TO MONITOR. Addendum: 01/22/18 at 2223 by MANAS RICHARDSON RN HAD TO MANUALLY ADMINISTER LANTUS THERE WAS NO SCANNING BAR/LABEL.
[2018-01-23] MEDS: CEFAZOLIN 1 GM in IV D5W 50 ML IV SCH ×2 (04:02→14:10)
[2018-01-23] MEDS: BLOOD SUGAR DIAGNOSTIC 1 EACH STRIP IN SCH ×2 (06:25→12:02)
[2018-01-23 06:40] LABS: HEMATOCRIT 25 % (39-51); HEMOGLOBIN 7.9 g/dL (13.5-17.5); MEAN CORPUSCULAR HEMOGLOBIN 23 PG (26.0-33.0); MEAN CORPUSCULAR HGB CONC 32 g/dl (31.0-36.0); MEAN CORPUSCULAR VOLUME 73 fL (80-96); PLATELET COUNT (AUTO) 447 /CMM (150-450); RED BLOOD CELL COUNT(AUTO) 3.41 MIL/uL (4.5-6.0); WHITE BLOOD COUNT (AUTO) 5.3 K/uL (4.3-11.0)
[2018-01-23 06:45] LABS: INR 1.47 (0.87-1.13)
[2018-01-23] MEDS: INSULIN REGULAR, HUMAN 100 UNIT/ML 3 ML VIAL SQ PRN ×2 (06:49→12:22)
--- NOTE | 2018-01-23 06:49 | NUR ---
MS RN NOTES: BLOOD SUGAR THIS AM WAS 47. D50 WAS GIVEN VIA IV AND JUICES PROVIDED TO PT. BLOOD SUGAR RECHECKED AND NOW 152. NO INSULIN COVERAGE. WILL CONTINUE TO MONITOR.
[2018-01-23 06:59] LABS: CALCIUM, SERUM 8.5 mg/dL (8.5-10.1); CREATININE 0.7 mg/dL (0.6-1.3)
--- NOTE | 2018-01-23 07:19 | NUR ---
MS RN CLOSING NOTES: ALL NEEDS WERE ATTENDED AND ANTICIPATED FOR. PT GIVEN CRACKERS AND JUICES. BLOOD SUGAR RECHECKED AFTER SNACKS AND D50 VIA IV AND IS NOW 152. NO COVERAGE GIVEN THIS AM. IV REMAINS INTACT AND IS BEING INFUSED WITH IV NS AT 75ML/HR. CALL BED ALARM ACTIVATED. WOUND TX PERFORMED ORDERED. PT TURNED AND REPOSITIONED. BED ALARM ACTIVATED. CALL LIGHT WITHIN PT'S REACH. BED KEPT IN LOW, LOCKED POSITION, AND SIDE RAILS 3 UP. ENDORSED TO AM NURSE FOR HARSHAD.
--- NOTE | 2018-01-23 07:30 | NUR ---
MS RN OPENING NOTES RECEIVED PATIENT IN BED RESTING. A/OX2-3, CONFUSED AT TIMES. NO ACUTE DISTRESS, NO SOB. NO S/S OF PAIN OR DISCOMFORT. IV SITE INTACT AND PATENT. KEPT PATIENT SAFE AND COMFORTABLE. BED IN LOW/LOCKED POSITION, SIDERAILS UPX2, CALL LIGHT IN REACH. WILL CONTINUE TO MONITOR ACCORDINGLY.
[2018-01-23 08:00] VITALS: BP 158/74
[2018-01-23 08:31] LABS: EOSINOPHILS % (MANUAL) 3 % (0-4); LYMPHOCYTES % (MANUAL) 11 % (16-48); MONOCYTES % (MANUAL) 3 % (0-11.0); NEUTROPHILS % (MANUAL) 83 (42-76)
[2018-01-23] MEDS: DOCUSATE SODIUM 100 MG CAPSULE PO SCH (08:40)
[2018-01-23] MEDS: LACTOBACILLUS RHAMNOSUS GG 1 EACH CAP.SPRINK PO SCH (08:40)
[2018-01-23] MEDS: ASCORBIC ACID 500 MG TABLET PO SCH (08:40)
[2018-01-23] MEDS: MULTIVITAMINS,THERAGRAN 1 UDTAB TABLET PO SCH (08:40)
[2018-01-23] MEDS: clonazePAM 0.5 MG TABLET PO SCH (08:40)
[2018-01-23] MEDS: GLUCERNA SHAKE 237 ML CAN PO SCH ×2 (08:40→12:02)
[2018-01-23] MEDS: AMLODIPINE BESYLATE 5 MG TABLET PO SCH (08:41)
[2018-01-23] MEDS: FERROUS SULFATE (325 MG) 325 MG/TAB TABLET PO SCH ×2 (08:41→13:42)
[2018-01-23] MEDS: hydrALAZINE HCL 25 MG TABLET PO SCH ×2 (08:42→13:42)
[2018-01-23] MEDS: LEVETIRACETAM (250 MG) 250 MG TABLET PO SCH (08:43)
[2018-01-23] MEDS ORDERED: POTASSIUM CHLORIDE 20 MEQ TAB.PRT.SR PO SCH (10:00)
--- NOTE | 2018-01-23 11:27 | NUR ---
NEW ORDERS FROM DR TRENA BYERS, GIVE POTASSIUM 40 MEQ PO AND 20 MEQ IVP. ORDERS NOTED AND WILL CARRY OUT. Addendum: 01/23/18 at 1138 by JESÚS SIMS ALSO TO DECREASE LANTUS TO 10 UNITS
[2018-01-23] MEDS ORDERED: POTASSIUM CHLORIDE 20 MEQ POWDER PACKET PO SCH (11:30)
[2018-01-23] MEDS ORDERED: POTASSIUM CHLORIDE 20 MEQ POWDER PACKET PO ONE (11:30)
[2018-01-23] MEDS: POTASSIUM CL. PREMIX PERIPHER. 50 ML IV SCH ×2 (11:58→13:06)
[2018-01-23] MEDS ORDERED: Potassium Chloride 10 MEQ in IV D5W 50 ML IV SCH (12:00)
[2018-01-23] MEDS ORDERED: POTASSIUM CHLORIDE 10 MEQ/50 ML PREMIXED IVPB FOR PERIPHERAL LINE IV ONE (12:00)
[2018-01-23 13:42] VITALS: BP 159/90
[2018-01-23] MEDS ORDERED: CEPH-570 PO (13:58)
[2018-01-23] MEDS ORDERED: Insulin Glargine,Hum SQ (13:58)
--- NOTE | 2018-01-23 14:00 | NUR ---
RN NOTES TURNED AND REPOSITIONED PATIENT EVERY 2 HRS NEEDED.
--- NOTE | 2018-01-23 15:31 | NUR ---
RN NOTES PATIENT REFUSED WOUND CARE, OFFERED 3X BUT STILL REFUSED.
--- NOTE | 2018-01-23 15:40 | NUR ---
DISCHARGE PATIENT IN STABLE CONDITION PICKED UP BY AMBULANCE CREW. DISCHARGE PAPERWORK GIVEN TO SUPERVISOR TANK HOUSE. ALL BELONGINGS RETURNED. REPORT GIVEN TO RUT FROM [facility], DISCHARGE INSTRUCTIONS GIVEN. REMOVED IV, APPLIED PRESSURE, NO COMPLICATIONS. REMOVED NAME BAND.
[2018-01-23] MEDS ORDERED: INSULIN GLARGINE, 100 UNIT/ML CARTRIDGE SQ SCH (22:00)
[2018-02-16] MEDS ORDERED: AMIN30LI4 PO (15:57)
[2018-02-16] MEDS ORDERED: WARF4TAB72 PO (15:57)
[2018-02-16] MEDS ORDERED: HYDR-552 PO (15:57)
[2018-02-16] MEDS ORDERED: QUET25TA PO (15:57)
[2018-02-16] MEDS ORDERED: INSU100V7 SQ (15:57)
[2018-02-16] MEDS ORDERED: ACET-868 PO (15:57)
[2018-02-20] MEDS ORDERED: PIPE3.379 IV (10:04)
[2018-02-20] MEDS ORDERED: VANC1PLA13 IV (10:04)
== END 2018-01-23 15:49 | DRG 364 ==
LOC: ER 14:16 → TELE 17:59 → MED 01-21 14:10
PROC: 0J970ZZ Drainage of Back Subcutaneous Tissue and Fascia, Open Approach (ICD-10-PCS; principal; 2018-01-22)
DX: L02.212 Cutaneous abscess of back [any part, except buttock and flank] (principal); G93.41 Metabolic encephalopathy; E43 Unspecified severe protein-calorie malnutrition; E83.51 Hypocalcemia; E11.9 Type 2 diabetes mellitus without complications; D47.3 Essential (hemorrhagic) thrombocythemia; E88.09 Other disorders of plasma-protein metabolism, not elsewhere classified; I10 Essential (primary) hypertension; D50.9 Iron deficiency anemia, unspecified; G40.909 Epilepsy, unspecified, not intractable, without status epilepticus; E78.5 Hyperlipidemia, unspecified; E87.6 Hypokalemia; Z86.73 Personal history of transient ischemic attack (TIA), and cerebral infarction without residual deficits; F32.9 Major depressive disorder, single episode, unspecified; M62.50 Muscle wasting and atrophy, not elsewhere classified, unspecified site; Z86.718 Personal history of other venous thrombosis and embolism; F29 Unspecified psychosis not due to a substance or known physiological condition; Z79.01 Long term (current) use of anticoagulants; Z79.4 Long term (current) use of insulin
CPT/HCPCS: 36415; 80048-TC; 80061-TC; 80076-TC; 80202-TC; 82272-TC; 82728-TC; 82746; 82945-TC; 82962-TC; 83540-TC; 83605-TC; 83735-TC; 84100-TC; 84443-TC; 85025-TC; 85610-TC; 85730-TC; 87040-TC; 87070-TC; 87081-TC; 87186-TC; 92611-TC; 93307-TC; A4606; A6253; A6402; A6403; J0690; J1815; J2543; J3370; J3475; J3480; J3490; J7030; J7040; J7050; J7060; Q9967; Z7610